=== PATIENT | female | born 1965 | race Caucasian/White ===

== ENCOUNTER 2021-03-15 15:19 | Emergency (ER) | payer OTHER, BC, SELFPAY ==
--- NOTE | ~2021-03-15 | XR_ITS ---
EXAMINATION: XR foot LT min 3V DATE: 03/15/2021 15:41 INDICATION: Dorsal foot pain TECHNIQUE: Dorsoplantar, lateral, and 2 oblique views of the left foot were obtained. COMPARISON: 11/10/2005 FINDINGS: Bone alignment is normal. There is no fracture. There is mild osteoarthritis of multiple in terphalangeal joints. There is mild dorsal soft tissue swelling of the foot. Posterior and plantar ca lcaneal enthesophytes are noted. IMPRESSION: 1. Dorsal soft tissue swelling of the foot without acute osseous abnormality. Reviewed, dictated and finalized at location B.
[2021-03-15 15:30] VITALS: BP 143/88; PULSE 101; RESP 16; TEMP 36.8; O2SAT 99
--- NOTE | 2021-03-15 15:48 | ED.GENADULT ---
HPI - General Adult General Stated complaint: lt foot injury Source: patient Mode of arrival: ambulatory Limitations: no limitations History of Present Illness HPI narrative: 55 y/o female. PMHx BEAU, Hypothyroid, HTN. Presents to [facility] today with acute complaints of LT dorsal foot pain after accident 1 week ago. Pt reports to have been at work, works at [employer], when a co-worker accidentally ran her foot over with the maintenance cart . Client reports worsening 'aching to site', worse with prolonged ambulation. Denies falls or additional injury. She has not yet sought out medical evaluation until now, today. She reports only mild relief with home OTC Tylenol remedies. Pt is w/o additional acute c/o illness upon exam. Related Data Home Medications Medication Instructions Recorded Confirmed citalopram 20 mg PO DAILY 03/15/21 03/15/21 hydrochlorothiazide 25 mg PO DAILY 03/15/21 03/15/21 hydroxychloroquine 200 mg PO DAILY 03/15/21 03/15/21 levothyroxine [Synthroid] 50 mcg PO DAILY 03/15/21 03/15/21 Allergies Allergy/AdvReac Type Severity Reaction Status Date / Time Penicillins Allergy Unknown Rash Verified 03/15/21 15:35 Review of Systems Review of Systems: CONSTITUTIONAL: Denies fever, chills, sweats. EYES: Denies visual changes, redness, discharge. ENT: Denies rhinorrhea, congestion, sore throat, otalgia. CARDIOVASCULAR: Denies chest pain, palpitations, edema. RESPIRATORY: Denies dyspnea, wheezing, cough GASTROINTESTINAL: Denies abdominal pain, nausea, vomiting, diarrhea. GENITOURINARY: Denies dysuria, hematuria, abnormal discharge SKIN: Denies rash or itching. MUSCULOSKELETAL: LT foot pain. Denies additional joint pain or myalgia. NEUROLOGIC: Denies numbness, or focal weakness. PSYCHIATRIC: Denies anxiety or depression. All systems reviewed & are unremarkable except as noted in HPI and below PMFSH Social History Social History Smoking status: Never smoker Alcohol intake: never Exam Narrative: GENERAL: This is a well-nourished, well-developed adult, in no apparent distress. HEAD: normocephalic, atraumatic. EYES: PERRL. Sclera clear/white. EARS: External ears normal, auditory canals clear and without drainage, TMs normal. NOSE: External nose normal. Positive Rhinorrhea, no obstruction, nares patent. THROAT: Mucous membranes moist, posterior pharynx clear. No exudates. NECK: Neck supple, non-tender without lymphadenopathy, masses or thyromegaly. CARDIOVASCULAR: Regular rate and rhythm without murmurs, gallops, or rubs. Pulses intact, strong LLE. RESPIRATORY: Clear to auscultation. Breath sounds equal bilaterally. No wheezes, rales, or rhonchi. GASTROINTESTINAL: Abdomen soft, non-tender, nondistended. Bowel sounds are active. No guarding. SKIN: warm, intact with no suspicious lesions or rash, good texture and turgor. Mild bruising, in stages of healing, located to mid-upper dorsal LT foot. No fluctuance or open wounds. NEURO: No focal neurologic deficits. Good sensation and discrimination LLE. EXTREMITIES: With mild point tenderness overlying mid-dorsal Left foot. No obvious bony deformity. Remainder of musculoskeletal exam is negative. Course Vital Signs Vital signs: Vital Signs Temperature 36.8 C 03/15/21 15:30 Pulse Rate 101 H 03/15/21 15:30 Respiratory Rate 16 03/15/21 15:30 Blood Pressure 143/88 H 03/15/21 15:30 Pulse Oximetry 99 03/15/21 15:30 Temperature 36.8 C 03/15/21 15:30 Pulse Rate 101 H 03/15/21 15:30 Respiratory Rate 16 03/15/21 15:30 Blood Pressure 143/88 H 03/15/21 15:30 Pulse Oximetry 99 03/15/21 15:30 Medical Decision Making [facility] Narrative Medical decision making narrative: -Plain film radiology imaging reveals LT dorsal soft tissue swelling of the foot without acute osseous abnormality. -Dx: Sprain LT foot. -RICE regimen advised. -PCP F/U 1 week. Cons
== END 2021-03-15 15:55 | disposition home or self-care (01) ==
PROVIDERS: Emergency Provider Nurse Practitioner Adult Health; PCP Internal Medicine
DX: S93.602A Unspecified sprain of left foot, initial encounter (principal); W22.8XXA Striking against or struck by other objects, initial encounter; Y92.39 Other specified sports and athletic area as the place of occurrence of the external cause; Y99.0 Civilian activity done for income or pay; E03.9 Hypothyroidism, unspecified; I10 Essential (primary) hypertension; F41.1 Generalized anxiety disorder
CPT/HCPCS: 73630; 99203; G0463